=== PATIENT | female | born 1965 | race Caucasian/White ===

== ENCOUNTER 2017-02-28 20:21 | Inpatient (IN) | payer MEDICAID, OTHER ==
[~2017-02-28] VITALS: Ht 152.4 cm; Wt 93.9 kg
[2017-02-28] MEDS ORDERED: CLON1 PO (20:49)
[2017-02-28] MEDS ORDERED: FLUO-191 PO (20:49)
[2017-02-28] MEDS ORDERED: BUPR100SR PO (20:49)
[2017-02-28] MEDS ORDERED: OLAN5TAB40 PO (20:49)
[2017-02-28] MEDS ORDERED: METF500T4 PO ×2 (20:49)
[2017-02-28] MEDS ORDERED: DOCU-202 PO (20:49)
[2017-02-28 20:57] LABS: GLUCOSE,POINT OF CARE 203 MG/DL (70-110)
[2017-02-28 21:21] LABS: BASOPHILS % (AUTO) 0.3 % (0.0-2.0); EOSINOPHILS % (AUTO) 0.5 % (1.0-6.0); HEMATOCRIT 41.6 % (36-46); HEMOGLOBIN 14.1 g/dL (12.0-16.0); LYMPHOCYTES # (AUTO) 1.4 K/uL (1.0-4.8); LYMPHOCYTES % (AUTO) 23.5 % (22.0-44.0); MEAN CORPUSCULAR HEMOGLOBIN 29.8 pg (26.0-34.0); MEAN CORPUSCULAR HGB CONC 33.9 G/dL (31.0-37.0); MEAN CORPUSCULAR VOLUME 88 fL (80-100); MONOCYTES # (AUTO) 0.5 K/uL (0.1-1.0); MONOCYTES % (AUTO) 8.9 % (2.0-9.0); NEUTROPHILS # (AUTO) 3.9 K/uL (1.8-7.7); NEUTROPHILS % (AUTO) 66.8 % (40.0-70.0); PLATELET COUNT (AUTO) 200 K/uL (150-450); RED BLOOD CELL COUNT(AUTO) 4.72 MIL/uL (4.00-5.20); RED CELL DISTRIBUTION WIDTH 15.4 % (11.5-14.5)
[2017-02-28 21:26] LABS: AMPHET/METH SCREEN,URINE NEGATIVE (NEGATIVE); BARBITURATE SCREEN, URINE NEGATIVE (NEGATIVE); BENZODIAZEPINES SCREEN,URINE NEGATIVE (NEGATIVE); CANNABINOID SCREEN,URINE NEGATIVE (NEGATIVE); COCAINE SCREEN,URINE NEGATIVE (NEGATIVE); METHADONE SCREEN, URINE NEGATIVE (NEGATIVE); OPIATE SCREEN,URINE NEGATIVE (NEGATIVE); PHENCYCLIDINE SCREEN,URINE NEGATIVE (NEGATIVE)
[2017-02-28 21:27] LABS: ANION GAP 9 mmol/L (8-16); CALCIUM, TOTAL 8.6 mg/dL (8.8-10.5); CARBON DIOXIDE 27 mmol/L (22-29); CHLORIDE 100 mmol/L (98-107); CREATININE 0.61 mg/dL (0.60-1.30); GLOMERULAR FILTR. RATE CALC > 60 mL/min (>60); GLUCOSE,RANDOM 214 mg/dL (70-110); POTASSIUM 3.8 mmol/L (3.5-5.1); SODIUM SERUM 136 mmol/L (136-145); UREA NITROGEN, BLOOD 15 mg/dL (7-18)
[2017-02-28 21:31] LABS: ALANINE AMINOTRANSFERASE 52 U/L (12-78); ALBUMIN 3.5 g/dL (3.4-5.0); ALKALINE PHOSPHATASE 102 U/L (46-116); ASPARTATE AMINOTRANSFERASE 35 U/L (15-37); BILIRUBIN,TOTAL 0.3 mg/dL (0.1-1.0); TOTAL PROTEIN, SERUM 7.3 g/dL (6.4-8.2)
[2017-02-28] MEDS ORDERED: LORazepam 2 MG TABLET PO ONE (22:15)
[2017-02-28] MEDS ORDERED: HALOPERIDOL 5 MG TABLET PO PRN (22:30)
[2017-02-28] MEDS ORDERED: ZOLPIDEM TARTRATE 10 MG TABLET PO PRN (22:30)
[2017-02-28] MEDS ORDERED: LORazepam 2 MG TABLET PO PRN (22:30)
[2017-02-28 22:47] LABS: GLUCOSE,POINT OF CARE 207 MG/DL (70-110)
[2017-02-28 23:14] LABS: CHOLESTEROL 183 mg/dL (131-200); FREE T4 (FREE THYROXINE) 0.96 ng/dL (0.76-1.46); HDL CHOLESTEROL 61 mg/dL (40-60); LDL CHOL (CALC.) 100 mg/dL (0-130); THYROID STIMULATING HORMONE 3.67 uIU/mL (0.36-3.74); TRIGLYCERIDES 108 mg/dL (15-150)
[2017-03-01 00:15] VITALS: BP 142/82
[2017-03-01] MEDS ORDERED: LOPERAMIDE HCL 2 MG CAPSULE PO PRN (04:45)
[2017-03-01] MEDS ORDERED: ALBUTEROL SULFATE HFA 90 MCG/PUFF 8 GM INHALER IH PRN (04:45)
[2017-03-01] MEDS ORDERED: IBUPROFEN 600 MG TABLET PO PRN (04:45)
[2017-03-01] MEDS ORDERED: BACITRACIN 28.4 GM OINTMENT TP PRN (04:45)
[2017-03-01] MEDS ORDERED: PETROLATUM,WHITE 71 GM JELLY TP PRN (04:45)
[2017-03-01] MEDS ORDERED: CloNIDine HCL 0.1 MG TABLET PO PRN (04:45)
[2017-03-01] MEDS ORDERED: ONDANSETRON HCL 4 MG TABLET PO PRN (04:45)
[2017-03-01] MEDS ORDERED: MAGNESIUM HYDROXIDE SUSPENSION 30 ML UDCUP PO PRN (04:45)
[2017-03-01] MEDS ORDERED: DEXTROSE 50%-WATER 25 GM/50 ML SYRINGE IVP PRN (04:45)
[2017-03-01] MEDS ORDERED: ACETAMINOPHEN 325 MG TABLET PO PRN (04:45)
[2017-03-01] MEDS ORDERED: MAG HYDROX/AL HYDROX/SIMETH ES 30 ML SUSPENSION UDCUP PO PRN (04:45)
[2017-03-01] MEDS ORDERED: BENZOCAINE/MENTHOL LOZENGE [8 LOZENGES/PACKET] MM PRN (05:00)
[2017-03-01 06:18] LABS: GLUCOMETER DEV NAME(LOC) 3EI B; GLUCOSE,POINT OF CARE 161 MG/DL (70-110)
[2017-03-01] MEDS: MetFORMIN HCL 500 MG TABLET PO SCH ×2 (06:58→16:48)
[2017-03-01] MEDS: INSULIN ASPART 100 UNITS/ML SQ PRN ×3 (07:02→20:27)
[2017-03-01] MEDS: OMEPRAZOLE 20 MG CAPSULE PO SCH (09:36)
[2017-03-01] MEDS: DOCUSATE SODIUM 100 MG CAPSULE PO SCH (09:36)
[2017-03-01 10:33] VITALS: BP 120/69
[2017-03-01 12:32] LABS: GLUCOMETER DEV NAME(LOC) 3EI B; GLUCOSE,POINT OF CARE 201 MG/DL (70-110)
[2017-03-01 16:42] LABS: GLUCOMETER DEV NAME(LOC) 3EI B; GLUCOSE,POINT OF CARE 147 MG/DL (70-110)
[2017-03-01 17:06] VITALS: BP 136/77
[2017-03-01] MEDS: OLANZapine 5 MG RAPDIS TABLET PO SCH (20:25)
[2017-03-01] MEDS: BuPROPion HCL 100 MG SR TABLET PO SCH (20:25)
[2017-03-01 20:27] LABS: GLUCOMETER DEV NAME(LOC) 3EI B; GLUCOSE,POINT OF CARE 218 MG/DL (70-110)
[2017-03-02] MEDS: MetFORMIN HCL 500 MG TABLET PO SCH ×2 (06:46→17:28)
[2017-03-02 07:08] LABS: GLUCOMETER DEV NAME(LOC) 3EI B; GLUCOSE,POINT OF CARE 135 MG/DL (70-110)
[2017-03-02 08:47] VITALS: BP 138/91
[2017-03-02] MEDS: OMEPRAZOLE 20 MG CAPSULE PO SCH (09:24)
[2017-03-02] MEDS: DOCUSATE SODIUM 100 MG CAPSULE PO SCH (09:25)
[2017-03-02 11:57] LABS: GLUCOMETER DEV NAME(LOC) 3EI B; GLUCOSE,POINT OF CARE 175 MG/DL (70-110)
[2017-03-02] MEDS: INSULIN ASPART 100 UNITS/ML SQ PRN (12:19)
[2017-03-02 17:04] VITALS: BP 138/72
[2017-03-02 17:42] LABS: GLUCOMETER DEV NAME(LOC) 3EI B; GLUCOSE,POINT OF CARE 135 MG/DL (70-110)
[2017-03-02] MEDS: OLANZapine 5 MG RAPDIS TABLET PO SCH (20:47)
[2017-03-02] MEDS: BuPROPion HCL 100 MG SR TABLET PO SCH (20:47)
[2017-03-02 20:58] LABS: GLUCOMETER DEV NAME(LOC) 3EI B; GLUCOSE,POINT OF CARE 142 MG/DL (70-110)
[2017-03-03 05:32] LABS: GLUCOMETER DEV NAME(LOC) 3EI B; GLUCOSE,POINT OF CARE 122 MG/DL (70-110)
[2017-03-03] MEDS: MetFORMIN HCL 500 MG TABLET PO SCH (06:38)
[2017-03-03] MEDS: DOCUSATE SODIUM 100 MG CAPSULE PO SCH (08:24)
[2017-03-03] MEDS: OMEPRAZOLE 20 MG CAPSULE PO SCH (08:24)
[2017-03-03 09:49] VITALS: BP 137/93
[2017-03-03 12:42] LABS: GLUCOMETER DEV NAME(LOC) 3EI B; GLUCOSE,POINT OF CARE 252 MG/DL (70-110)
== END 2017-03-03 14:45 | disposition home or self-care (01) | DRG 750 ==
LOC: EMS 20:25 → 3EI 22:21
DX: F25.1 Schizoaffective disorder, depressive type (principal); R45.851 Suicidal ideations; E11.65 Type 2 diabetes mellitus with hyperglycemia; E66.9 Obesity, unspecified; Z68.41 Body mass index [BMI] 40.0-44.9, adult; F41.9 Anxiety disorder, unspecified; G47.00 Insomnia, unspecified; K21.9 Gastro-esophageal reflux disease without esophagitis; K59.00 Constipation, unspecified; M54.30 Sciatica, unspecified side; Z79.899 Other long term (current) drug therapy
CPT/HCPCS: 82962; 83036; 84439; 84443; 99285; G0480